=== PATIENT | female | born 1980 | race Hispanic/Latino ===

== ENCOUNTER 2022-06-07 19:21 | Emergency (ER) | payer SELFPAY ==
[~2022-06-07] VITALS: Ht 162.6 cm; Wt 89.4 kg
[~2022-06-07 19:21] MED LIST: NORCO 10-325 T1 EACH PO
== END 2022-06-07 19:56 | disposition home or self-care (01) ==
LOC: ER 19:34
DX: R21 Rash and other nonspecific skin eruption (principal)
CPT/HCPCS: 99282